=== PATIENT | male | born 1970 | race Caucasian/White ===

== ENCOUNTER 2020-06-27 14:41 | Emergency (ER) | payer BC ==
[~2020-06-27] VITALS: Ht 177.8 cm; Wt 121.6 kg
--- NOTE | 2020-06-27 15:57 | NUR ---
WAITING FOR GI CONSULT.
[2020-06-27] MEDS ORDERED: ONDANSETRON 2MG/ML, 2ML ONE (16:14)
[2020-06-27] MEDS ORDERED: PROPOFOL 10 MG/ML, 20ML ONE ×5 (16:14→18:47)
--- NOTE | 2020-06-27 16:30 | NUR ---
PT MOVED TO TRAUMA 2, PIV PLACED, CONSENTED FOR PROCEDURAL SEDATION, WAITING FOR ENDO. VITALS STABLE, DENIES PAIN OR NAUSEA. VITALS AT BEDSIDE.
[2020-06-27] MEDS ORDERED: PROPOFOL 10 MG/ML, 100ML IV ONE (17:00)
--- NOTE | 2020-06-27 17:57 | NUR ---
End of procedural sedation, tolerated well, see documentation. pt is aox4, return to baseline, family at bedside w/ provider for updates. pt to go to OR for endo under general anesthesia, verbalizes understanding.
--- NOTE | 2020-06-27 18:20 | NUR ---
Report given to OR, belongings with family. Vitals stable.
[2020-06-27 18:22] VITALS: BP 152/96
[2020-06-27] MEDS ORDERED: MIDAZOLAM 1 MG/ML, 2ML ONE (18:34)
[2020-06-27] MEDS ORDERED: FENTANYL PF 100 MCG/2ML ONE (18:34)
[2020-06-27] MEDS ORDERED: SUCCINYLCHOLINE 20 MG/ML, 10ML ONE (18:47)
[2020-06-27] MEDS ORDERED: hydrALAzine 20 MG/ML, 1ML IV PRN (20:00)
[2020-06-27] MEDS ORDERED: OXYcodone 5 MG/5 ML ORAL.SOL UDC PO PRN (20:00)
[2020-06-27] MEDS ORDERED: ACETAMINOPHEN 325 MG TABLET PO PRN (20:00)
[2020-06-27] MEDS ORDERED: ONDANSETRON 2MG/ML, 2ML IVPush PRN (20:00)
[2020-06-27] MEDS ORDERED: FENTANYL PF 100 MCG/2ML IV PRN (20:00)
== END 2020-06-27 18:36 | disposition home or self-care (01) ==
LOC: ED 15:11
DX: T18.128A Food in esophagus causing other injury, initial encounter (principal); K22.2 Esophageal obstruction; Z20.822 Contact with and (suspected) exposure to COVID-19; X58.XXXA Exposure to other specified factors, initial encounter; Y93.89 Activity, other specified; Y92.89 Other specified places as the place of occurrence of the external cause; Y99.8 Other external cause status
CPT/HCPCS: 43247; 87635; 99285; J0330; J2250; J2704; J3010; 99283